=== PATIENT | male | born 1995 ===

== ENCOUNTER 2017-11-16 18:39 | Emergency (ER) | payer MEDICAID ==
[2017-11-16 18:49] VITALS: BP 129/81; PULSE 84; RESP 16; TEMP 98.8; O2SAT 99
--- NOTE | 2017-11-16 19:53 | ED PDOC ---
Lower Extremity Pain/Injury Time Seen by Provider: 11/16/17 19:38 Chief Complaint (Nursing): Lower Extremity Problem/Injury Chief Complaint (Provider): Right great toe pain History Per: Patient History/Exam Limitations: no limitations Onset/Duration Of Symptoms: Days (1 month) Current Symptoms Are (Timing): Still Present Severity: Moderate Additional Complaint(s): 22 yo male with no medical problems presents with pain in the right great toe for 1 month. Pt states it is tender to touch and walk. Pt states he has been applying peroxide. Pt states he has not been soaking toe or doing anything for the pain. Past Medical History Reviewed: Historical Data, Nursing Documentation, Vital Signs Vital Signs: Last Vital Signs Temp 98.8 F 11/16/17 18:47 Pulse 84 11/16/17 18:47 Resp 16 11/16/17 18:47 BP 129/81 11/16/17 18:47 Pulse Ox 99 11/16/17 18:47 - Medical History PMH: No Chronic Diseases - Surgical History Surgical History: No Surg Hx - Family History Family History: States: No Known Family Hx - Living Arrangements Living Arrangements: With Family - Social History Alcohol: None - Home Medications Home Medications: Ambulatory Orders Medication Instructions Recorded Cephalexin [Keflex] 500 mg PO BID #14 capsule 11/16/17 - Allergies Allergies/Adverse Reactions: Allergies Allergy/AdvReac Type Severity Reaction Status Date / Time No Known Allergies Allergy Verified 11/16/17 18:47 Review of Systems ROS Statement: Except As Marked, All Systems Reviewed And Found Negative Constitutional: Negative for: Fever, Chills Skin: Positive for: Other Physical Exam - Reviewed Nursing Documentation Reviewed: Yes Vital Signs Reviewed: Yes - Physical Exam Appears: Positive for: Well, Non-toxic, No Acute Distress Head Exam: Positive for: ATRAUMATIC, NORMAL INSPECTION, NORMOCEPHALIC Skin: Positive for: Warm. Negative for: Normal Color (edema and localized erythema of the right medial naol fold on the right great toe ) Eye Exam: Positive for: Normal appearance ENT: Positive for: Normal ENT Inspection Neck: Positive for: Normal, Painless ROM Cardiovascular/Chest: Negative for: Bradycardia, Tachycardia Respiratory: Negative for: Accessory Muscle Use, Respiratory Distress Extremity: Positive for: Normal ROM Neurologic/Psych: Positive for: Alert, Oriented - ECG O2 Sat by Pulse Oximetry: 99 Disposition - Clinical Impression Clinical Impression: Ingrown toenail - Patient ED Disposition Is Patient to be Admitted: No - Disposition Referrals: Podiatry Clinic [Outside] Disposition: Routine/Home Disposition Time: 19:51 Condition: STABLE Additional Instructions: Warm soaks. Follow-up with wirer. Prescriptions: Cephalexin [Keflex] 500 mg PO BID #14 capsule Instructions: Ingrown Toenail (DC)
== END 2017-11-16 20:20 | disposition home or self-care (01) ==
LOC: H.ER 18:39 → SUPCPDRO 18:39 → H.ER 20:20
DX: L60.0 Ingrowing nail (principal)